=== PATIENT | female | born 1975 | race Caucasian/White ===

== ENCOUNTER 2018-01-07 18:51 | Emergency (ER) | payer OTHER ==
[2018-01-07] MEDS ORDERED: LORAZEPAM 2 MG/ML VIAL IV ONE (19:07)
[2018-01-07] MEDS ORDERED: METOCLOPRAMIDE HCL 10 MG/2 ML VIAL IVP ONE (19:07)
[2018-01-07] MEDS ORDERED: DIPHENHYDRAMINE HCL 50 MG/ML VIAL IVP ONE (19:07)
--- NOTE | 2018-01-07 19:11 | Emergency Department Record ---
History of Present Illness - General Chief Complaint: Headache Migraine Stated Complaint: HEADACHE Time Seen by Provider: 01/07/18 19:06 Source: Patient Mode of Arrival: Ambulatory Limitations: No limitations - History of Present Illness Initial Comments: 42 yo female presents to ED for evaluation of "twitching in head and shaking" today. Patient reports that she feels that she is "about to have a seizure". Patient reports being seen in the [facility] last night, treated for PID, CAP, and UTI symptoms. Patient is concerned that the medications that she was started on may be interacting with her Keppra. ARTEAGA Complaint: Headache Onset/Timin -: Days(s) Onset Description: Gradual Location: Right, Temporal Severity: Moderate Severity scale (1-10): 7 Quality: Sharp Consistency: Intermittent Improves With: Nothing Worsens With: None Treatments Prior to Arrival: Acetaminophen Treatment Prior to Arrival Comment:: tylenol- 2 about 30 minutes ago - Related Data Allergies Allergy/AdvReac Type Severity Reaction Status Date / Time Penicillins Allergy hives Verified 01/07/18 18:59 Sulfa (Sulfonamide Allergy hives Verified 01/07/18 18:59 Antibiotics) Travel Screening - Travel/Exposure Within Last 30 Days Have you traveled within the last 30 days?: No Review of Systems Constitutional: Reports: Malaise. Denies: Chills, Night sweats Eyes: Denies: Eye discharge, Eye pain ENT: Denies: Congestion, Ear pain, Epistaxis Respiratory: Denies: Cough, Dyspnea Cardiovascular: Denies: Chest pain, Dyspnea on exertion Endocrine: Reports: Fatigue. Denies: Heat or cold intolerance Gastrointestinal: Denies: Abdominal pain, Nausea, Vomiting Genitourinary: Denies: Incontinence, Retention Musculoskeletal: Denies: Arthralgia, Back pain, Gout, Joint swelling Skin: Denies: Bruising, Change in color Neurological: Denies: Abnormal gait, Seizure Psychiatric: Denies: Anxiety Hematological/Lymphatic: Denies: Anemia, Blood Clots Past Medical History - SOCIAL HISTORY Smoking Status: Never smoker Alcohol Use: None Drug Use: None - RESPIRATORY Hx Respiratory Disorders: No - CARDIOVASCULAR Hx Cardio Disorders: No - NEURO Hx Neuro Disorders: Yes Hx Seizures: Yes - GI Hx GI Disorders: No - Hx Genitourinary Disorders: No - ENDOCRINE Hx Endocrine Disorders: Yes Hx Thyroid Disease: Yes - MUSCULOSKELETAL Hx Musculoskeletal Disorders: No - PSYCH Hx Psych Problems: No - HEMATOLOGY/ONCOLOGY Hx Hematology/Oncology Disorders: No Family Medical History Any Significant Family History?: No Physical Exam - General General Appearance: Alert, Oriented x3, Cooperative, Mild distress Limitations: No limitations - Head Head exam: Atraumatic, Normocephalic, Normal inspection Head exam detail: negative: Abrasion, Contusion, Rdz's sign, General tenderness, Hematoma, Laceration - Eye Eye exam: Normal appearance. negative: Conjunctival injection, Periorbital swelling, Periorbital tenderness, Scleral icterus - ENT Ear exam: negative: Auricular hematoma, Auricular trauma Nasal Exam: negative: Active bleeding, Discharge, Dried blood, Foreign body Mouth exam: negative: Drooling, Laceration, Muffled voice, Tongue elevation - Neck Neck exam: Normal inspection. negative: Meningismus, Tenderness - Respiratory Respiratory exam: Normal lung sounds bilaterally. negative: Rales, Respiratory distress, Rhonchi, Stridor - Cardiovascular Cardiovascular Exam: Regular rate, Normal rhythm, Normal heart sounds - GI/Abdominal GI/Abdominal exam: Soft. negative: Rebound, Rigid, Tenderness - Rectal Rectal exam: Deferred - exam: Deferred - Extremities Extremities exam: Normal inspection. negative: Calf tenderness, Pedal edema, Tenderness - Back Back exam: Denies: CVA tenderness (R), CVA tenderness (L) - Neurological Neurological exam: Alert, Normal gait, Oriented X3 - Psychiatric Psychiatric exam: Normal affect, Normal mood - Skin Skin exam: Normal color. negative: Abrasion Type of lesion: negative: abrasion Course Vital Signs 01/07/18 18:54 Temperature 98.5 F Pulse Rate 100 H Respiratory 20 Rate Blood Pressure 111/62 Pulse Ox 95 - Reevaluation(s) Reevaluation #1: 01/07/18 19:14 Evaulation from from [facility] was reviewed: UA: 4+ Bacteria 6-10 WBCs 21-35 RBCs CXR: Subtle LLL pneumonitis Will obtain laboratory studies tonight, treat for probable migraine headache. Patient is afebrile, does not have any meningeal signs on examination, and reassess. Will administer Ativan to pre-treat for possible oncoming seizure and reassess. Reevaluation #2: 01/07/18 20:03 Laboratory studies were reviewed: WBC 17.6 Potassium 3.1 AG 17. Labs are otherwise grossly unremarkable for an acute process. Oral potassium ordered. Reevaluation #3: 01/07/18 20:09 Patient was reassessed and updated on all results. Patient reports that her headache symptoms have improved from /10 to 2/10, reports that she is feeling MUCH improved. Patient has no meningeal sings on re-examination. I did discuss the lack of physical findings suggesting meningitis with the patient and her SO, discussed CT/LP with the patient and her SO, and they have declined at this time following our discussion. Patient was encouraged to return to the ED for any worsening of her symptoms immediately. Medical Decision Making - Lab Data Result diagrams: 01/07/18 19:16 01/07/18 19:16 Disposition Disposition: Discharge Clinical Impression: Headache Qualifiers: Headache type: unspecified Headache chronicity pattern: acute headache Intractability: not intractable Qualified Code(s): R51 - Headache CAP (community acquired pneumonia) Qualifiers: Laterality: left Lung location: lower lobe of lung Qualified Code(s): J18.1 - Lobar pneumonia, unspecified organism UTI (urinary tract infection) Qualifiers: Urinary tract infection type: acute cystitis Hematuria presence: with hematuria Qualified Code(s): N30.01 - Acute cystitis with hematuria Disposition: Home, Self-Care Condition: (2) Stable Instructions: Acute Headache (ED) Additional Instructions: Return to ED if your symptoms worsen or if you have any concerns. Continue your antibiotics as prescribed. Follow-up with your family doctor in 1-3 days as directed. Forms: Patient Portal Access Time of Disposition: 20:09 Quality - Quality Measures Quality Measures: N/A - Blood Pressure Screening Does Patient Have Any of the Following: No Blood Pressure Classification: Normal BP Reading Systolic Measurement: 111 Diastolic Measurement: 62 Screening for High Blood Pressure: < Normal BP, F/U Not Required > [G8783]
[2018-01-07] MEDS ORDERED: 0.9 % SODIUM CHLORIDE 1000ML 1,000 ML IV SCH (19:15)
[2018-01-07 19:23] LABS: BASO % 0.2 % (0-6); EOS % 0.9 % (0-6); GRAN % 74.2 % (47-80); HEMATOCRIT 41.3 % (35.0-47.0); LYMPH % 13.4 % (16-45); MEAN CORPUSCULAR HEMOGLOBIN 30.5 pg (27-33); MEAN CORPUSCULAR HGB CONC 33.9 g/dl (32-36); MEAN PLATELET VOLUME 11.2 fl (7.4-10.4); MONO % 11.3 % (0-9); PLATELET COUNT 222 K/uL (130-400); RED BLOOD COUNT 4.59 M/uL (3.80-5.40); RED CELL DISTRIBUTION WIDTH 13.4 % (11.5-14.5); WHITE BLOOD COUNT W/O DIFF 17.6 K/uL (4.2-12.2)
[2018-01-07 19:37] LABS: BLOOD UREA NITROGEN 13 mg/dL (6-20)
[2018-01-07 19:38] LABS: CREATININE 0.9 mg/dL (0.5-0.9); EST GLOMERULAR FILTRATION RATE > 60 mL/min; TOTAL PROTEIN 7.6 g/dL (6.6-8.7)
[2018-01-07 19:40] LABS: GLUCOSE,RANDOM 101 mg/dL (74-109)
[2018-01-07 19:43] LABS: ALB/GLOB RATIO 0.9 (1.1-1.8); ALBUMIN 3.7 g/dL (4.0-5.0); ALKALINE PHOSPHATASE 105 U/L (35-104); ALT/SGPT 13 U/L (<33); AST/SGOT 12 U/L (10.0-35.0)
[2018-01-07] MEDS ORDERED: POTASSIUM BICARB./CIT AC 25 MEQ EFF.TAB PO STA (20:03)
== END 2018-01-07 20:27 | disposition home or self-care (01) ==
LOC: ER 18:51
DX: J18.1 Lobar pneumonia, unspecified organism (principal); R51 Headache; N30.01 Acute cystitis with hematuria; G40.909 Epilepsy, unspecified, not intractable, without status epilepticus
CPT/HCPCS: 80053; 85025; 96374; 96375; 99284; J1200; J2765; J7030

== ENCOUNTER 2018-05-19 18:40 | Emergency (ER) | payer OTHER ==
[2018-05-19] MEDS ORDERED: IBUPROFEN 600 MG TABLET PO ONE (18:48)
--- NOTE | 2018-05-19 18:52 | Emergency Department Record ---
History of Present Illness - General Chief Complaint: Fall Injury Stated Complaint: SLIP AND FALL LT ARM PAIN Time Seen by Provider: 05/19/18 18:47 Source: Patient Mode of Arrival: Ambulatory Limitations: No limitations - History of Present Illness Initial Comments: 42 yo female presents to ED for evaluation of pain to the left elbow and shoulder following a [id number] that occurred just prior to arrival. Patient reports pain over the anterior shoulder, movement of the shoulder or elbow result in pain. Patient denies other injury on examination, does not take anticoagulation medications at her baseline. Patient does report a history of seizures that she takes Keppra for, took her medication prior to arrival. MD Complaint: Fall Onset/Timin -: Minutes(s) Fall From: Standing When Fall Occurred: Just prior to arrival Fall Witnessed: Yes, by family Place Fall Occurred: Street Loss of Consciousness: None Prolonged Down Time?: No Symptoms Prior to Fall: None Location - Extremities: Left: Shoulder, Elbow Severity: Moderate Quality: Aching - [place] Coma Scale Eye Response: (4) Open spontaneously Motor Response: (6) Obeys commands Verbal Response: (5) Oriented [place] Total: 15 - Related Data Previous Rx's Medication Instructions Recorded Hydrocodone/Acetaminophen [[place] 1 each PO Q6H PRN #10 tablet 05/19/18 5-325 Tablet] Allergies Allergy/AdvReac Type Severity Reaction Status Date / Time Penicillins Allergy hives Verified 01/07/18 18:59 prednisone Allergy HIVES Verified 05/19/18 18:52 Sulfa (Sulfonamide Allergy hives Verified 01/07/18 18:59 Antibiotics) Review of Systems Constitutional: Denies: Chills, Fever, Malaise, Night sweats Eyes: Denies: Eye discharge, Eye pain ENT: Denies: Congestion, Ear pain, Epistaxis Respiratory: Denies: Cough, Dyspnea Cardiovascular: Denies: Chest pain, Dyspnea on exertion Endocrine: Denies: Fatigue, Heat or cold intolerance Gastrointestinal: Denies: Abdominal pain, Nausea, Vomiting Genitourinary: Denies: Incontinence, Retention Musculoskeletal: Reports: Arthralgia. Denies: Back pain, Gout, Joint swelling Skin: Denies: Bruising, Change in color Neurological: Denies: Abnormal gait, Confusion, Headache, Tingling, Tremors Psychiatric: Denies: Anxiety Hematological/Lymphatic: Denies: Anemia, Blood Clots Past Medical History - SOCIAL HISTORY Smoking Status: Never smoker Drug Use: None - RESPIRATORY Hx Respiratory Disorders: No - CARDIOVASCULAR Hx Cardio Disorders: No - NEURO Hx Neuro Disorders: Yes Hx Seizures: Yes - GI Hx GI Disorders: No - Hx Genitourinary Disorders: No - ENDOCRINE Hx Endocrine Disorders: Yes Hx Thyroid Disease: Yes - MUSCULOSKELETAL Hx Musculoskeletal Disorders: No - PSYCH Hx Psych Problems: No - HEMATOLOGY/ONCOLOGY Hx Hematology/Oncology Disorders: No Physical Exam - General General Appearance: Alert, Oriented x3, Cooperative, Moderate distress (due to pain symtpoms) Limitations: No limitations - Head Head exam: Atraumatic, Normocephalic, Normal inspection Head exam detail: negative: Abrasion, Contusion, Rdz's sign, General tenderness, Hematoma, Laceration - Eye Eye exam: Normal appearance. negative: Conjunctival injection, Periorbital swelling, Periorbital tenderness, Scleral icterus - ENT Ear exam: negative: Auricular hematoma, Auricular trauma Nasal Exam: negative: Active bleeding, Discharge, Dried blood, Foreign body Mouth exam: negative: Drooling, Laceration, Muffled voice, Tongue elevation - Neck Neck exam: Normal inspection. negative: Meningismus, Tenderness - Respiratory Respiratory exam: Normal lung sounds bilaterally. negative: Respiratory distress, Rhonchi, Stridor, Wheezes - Cardiovascular Cardiovascular Exam: Regular rate, Normal rhythm, Normal heart sounds Peripheral Pulses: 3+: Radial (L) - GI/Abdominal GI/Abdominal exam: Soft. negative: Rebound, Rigid, Tenderness - Rectal Rectal exam: Deferred - exam: Deferred - Extremities Extremities exam: Normal capillary refill, Tenderness, Other (TTP over the left shoulder anteriorly, no evidence for AC separation or dislocation on examination , no pain over the posterior rotator cuff area. Left elbow is TTP diffusely, no effusion present, cannot evaluate ROM due to pain symptoms. Compartments of the forearm and upper arm are soft on examination.). negative: Calf tenderness , Pedal edema - Back Back exam: Denies: CVA tenderness (R), CVA tenderness (L) - Neurological Neurological exam: Alert, Normal gait, Oriented X3 - Psychiatric Psychiatric exam: Normal affect, Normal mood - Skin Skin exam: Normal color. negative: Abrasion Type of lesion: negative: abrasion Course - Reevaluation(s) Reevaluation #1: 02/11/19 19:51 Left shoulder: Mildly displaced fracture of the greater tuberousity of the humoral head Left elbow: No acute fracture identified Patient was updated on all results, will place in sling and arrange orthopedic follow-up with Dr. Melgar later this week. Patient verbalizes understanding of all instructions, appears stable for discharge at this time. Disposition Disposition: Discharge Clinical Impression: Humeral head fracture Qualifiers: Encounter type: initial encounter Fracture type: closed Laterality: left Qualified Code(s): S42.292A - Other displaced fracture of upper end of left humerus, initial encounter for closed fracture Disposition: Home, Self-Care Condition: (2) Stable Instructions: Proximal Humerus Fracture (ED) Additional Instructions: Return to ED if your symptoms worsen or if you have any concerns. Follow-up with Dr. Melgar in 3-5 days as directed. Sling as directed. Prescriptions: Hydrocodone/Acetaminophen [[place] 5-325 Tablet] 1 each PO Q6H PRN #10 tablet PRN Reason: Pain - Mod To Severe (5-10) Referrals: RADHA MELGAR [DOCTOR OF OSTEOPATH] - [facility] [Provider Group] Forms: Patient Portal Access Time of Disposition: 19:56 Quality - Quality Measures Quality Measures: N/A - Blood Pressure Screening Does Patient Have Any of the Following: No Blood Pressure Classification: Pre-Hypertensive BP Reading Systolic Measurement: 135 Diastolic Measurement: 81 Screening for High Blood Pressure: < Pre-Hypertensive BP, F/U Documented > [ G8950] Pre-Hypertensive Follow-up Interventions: Referral to alternative/primary care provider.
--- NOTE | 2018-05-22 07:51 | RADIOLOGY REPORT ---
EXAM: LEFT SHOULDER, THREE VIEWS HISTORY: SLIPPED AND FELL. TECHNIQUE: Three views of the left shoulder were obtained. Comparison: Chest x-ray 01/06/18. Encounter: Initial. FINDINGS: There is a mildly displaced fracture of the greater tuberosity of the humeral head. The glenohumeral relationship is normal. No adjacent rib fractures. IMPRESSION: MILDLY DISPLACED FRACTURE OF THE GREATER TUBEROSITY OF THE LEFT HUMERAL HEAD. JOB NUMBER: [id number] MTDD
--- NOTE | 2018-05-22 07:52 | RADIOLOGY REPORT ---
EXAM: LEFT ELBOW, THREE VIEWS HISTORY: FALL. TECHNIQUE: Three views of the left elbow were obtained. Comparison: None. Encounter: Initial. FINDINGS: Three views of the left elbow shows no evidence of fracture or dislocation. No joint effusion or soft tissue abnormality. IMPRESSION: NORMAL LEFT ELBOW. JOB NUMBER: [id number] MTDD
== END 2018-05-19 20:10 | disposition home or self-care (01) ==
LOC: ER 18:40
DX: S42.292A Other displaced fracture of upper end of left humerus, initial encounter for closed fracture (principal); G40.909 Epilepsy, unspecified, not intractable, without status epilepticus; E03.9 Hypothyroidism, unspecified; W18.30XA Fall on same level, unspecified, initial encounter; Y93.9 Activity, unspecified; Y92.480 Sidewalk as the place of occurrence of the external cause
CPT/HCPCS: 99283